=== PATIENT | female | born 1980 | race Caucasian/White ===

== ENCOUNTER 2018-08-12 15:20 | Outpatient (CLI) | payer BC ==
--- NOTE | 2018-08-12 17:11 | RAD ---
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 Anterior cervical fusion changes at C5-C6 with intradiscal prosthesis. Minimal prevertebral soft tiss ue swelling diffusely. Portions of C1 and C2 odontoid are obscured on the open mouth view. No prior s tudies available for comparison. IMPRESSION: Anterior cervical fusion changes at C5-C6 with some diffuse prevertebral soft tissue swelling. No sig nificant malalignment. POS: [facility]
== END 2018-08-12 15:21 | disposition home or self-care (01) ==
LOC: TBSIIMAG 15:20
PROVIDERS: ATTEND Neurological Surgery
DX: M47.12 Other spondylosis with myelopathy, cervical region (principal); Z98.1 Arthrodesis status
CPT/HCPCS: 72040

== ENCOUNTER 2018-09-25 14:29 | Outpatient (CLI) | payer BC ==
--- NOTE | 2018-09-25 14:57 | RAD ---
CERVICAL SPINE 4 VIEWS: Date: 09/25/18 HISTORY: Neck pain. FINDINGS: Anterior fixation hardware at the C5-6 level without perihardware lucency. Interbody fusion material markers extend to the anterior margin of the disc space on the lateral view. Cervicothoracic junction is intact. Vertebral body height and alignment are maintained. Prominent transverse processes at the C7 level on the frontal view. IMPRESSION: Anterior operative fixation of lower cervical spine. No acute osseous abnormalities are demonstrated. POS: [facility]
== END 2018-09-25 14:30 | disposition home or self-care (01) ==
LOC: TBSIIMAG 14:29
PROVIDERS: ATTEND Neurological Surgery
DX: M50.30 Other cervical disc degeneration, unspecified cervical region (principal); Z98.890 Other specified postprocedural states
CPT/HCPCS: 72040